=== PATIENT | male | born 1980 ===

== ENCOUNTER 2019-02-25 18:22 | Inpatient (IN) | payer OTHER ==
[~2019-02-25] VITALS: Ht 172.7 cm; Wt 89.7 kg
[2019-02-25 19:12] LABS: BASOPHILS % (AUTO) 0.7 % (0.0-2.0); EOSINOPHILS % (AUTO) 4.1 % (1.0-6.0); HEMATOCRIT 40.2 % (41-53); HEMOGLOBIN 13.7 g/dL (13.5-17.5); LYMPHOCYTES # (AUTO) 1.3 K/uL (1.0-4.8); LYMPHOCYTES % (AUTO) 17.7 % (22.0-44.0); MEAN CORPUSCULAR HEMOGLOBIN 29.2 pg (26.0-34.0); MEAN CORPUSCULAR VOLUME 86 fL (80-100); MONOCYTES # (AUTO) 0.5 K/uL (0.1-1.0); NEUTROPHILS # (AUTO) 5.2 K/uL (1.8-7.7); NEUTROPHILS % (AUTO) 70.5 % (40.0-70.0); PLATELET COUNT (AUTO) 224 K/uL (150-450); RED BLOOD CELL COUNT(AUTO) 4.68 MIL/uL (4.50-5.90); RED CELL DISTRIBUTION WIDTH 13.1 % (11.5-14.5)
[2019-02-25] MEDS ORDERED: ONDANSETRON HCL 4 MG/2 ML VIAL IVP PRN (19:30)
[2019-02-25] MEDS ORDERED: SODIUM CHLORIDE 0.9% 1,000 ML IV ONE ×2 (19:30→20:00)
[2019-02-25] MEDS ORDERED: ACETAMINOPHEN 325 MG TABLET PO PRN (19:30)
[2019-02-25] MEDS ORDERED: MAGNESIUM HYDROXIDE SUSPENSION 30 ML UDCUP PO PRN (19:30)
[2019-02-25 19:35] LABS: ANION GAP 9 mmol/L (8-16); CALCIUM, TOTAL 9.5 mg/dL (8.8-10.5); CARBON DIOXIDE 27 mmol/L (22-29); CHLORIDE 99 mmol/L (98-107); CREATININE 0.91 mg/dL (0.60-1.30); GLOMERULAR FILTR. RATE CALC > 60 mL/min (>60); GLUCOSE,RANDOM 106 mg/dL (70-110); POTASSIUM 4.2 mmol/L (3.5-5.1); SODIUM SERUM 135 mmol/L (136-145); UREA NITROGEN, BLOOD 17 mg/dL (7-18)
[2019-02-25 19:41] LABS: ALANINE AMINOTRANSFERASE 23 U/L (12-78); ALBUMIN 3.9 g/dL (3.4-5.0); ALKALINE PHOSPHATASE 125 U/L (46-116); ASPARTATE AMINOTRANSFERASE 20 U/L (15-37); BILIRUBIN,TOTAL 0.5 mg/dL (0.1-1.0); TOTAL PROTEIN, SERUM 8.2 g/dL (6.4-8.2)
[2019-02-25] MEDS ORDERED: ONDANSETRON HCL 4 MG/2 ML VIAL IVP ONE (20:00)
[2019-02-25 20:45] VITALS: BP 118/69
[2019-02-25] MEDS: FAMOTIDINE 20 MG TABLET PO SCH (21:50)
[2019-02-26] VITALS (7 sets, daily range): BP systolic 102–140; BP diastolic 65–80
[2019-02-26] MEDS: FAMOTIDINE 20 MG TABLET PO SCH ×2 (08:10→20:04)
[2019-02-26] MEDS: LORazepam 2 MG/ML VIAL IVP PRN ×2 (12:25→20:07)
[2019-02-27 04:00] VITALS: BP 125/79
[2019-02-27 07:39] VITALS: BP 114/85
[2019-02-27] MEDS: FAMOTIDINE 20 MG TABLET PO SCH ×2 (08:02→20:39)
[2019-02-27] MEDS: LORazepam 2 MG/ML VIAL IVP PRN ×2 (08:03→13:42)
[2019-02-27] MEDS ORDERED: SODIUM CHLORIDE 0.9% 1,000 ML IV ONE (11:15)
[2019-02-27 11:30] VITALS: BP 125/77
[2019-02-27] MEDS: NICOTINE 21 MG/24 HOUR PATCH TD SCH (13:42)
[2019-02-27 15:25] VITALS: BP 124/86
[2019-02-27 19:20] VITALS: BP 115/86
[2019-02-27 23:20] VITALS: BP 117/83
[2019-02-28 04:40] VITALS: BP 111/77
[2019-02-28] MEDS: LORazepam 2 MG/ML VIAL IVP PRN (04:58)
[2019-02-28 07:28] VITALS: BP 114/76
[2019-02-28] MEDS ORDERED: NICO-704 TD (09:00)
[2019-02-28] MEDS ORDERED: ACET-2247 PO (09:03)
[2019-02-28] MEDS: FAMOTIDINE 20 MG TABLET PO SCH (09:18)
[2019-02-28] MEDS: NICOTINE 21 MG/24 HOUR PATCH TD SCH (09:18)
== END 2019-02-28 10:30 | DRG 897 ==
LOC: EMS 18:26 → 6S 19:30
PROVIDERS: ADMIT Internal Medicine; ATTEND Internal Medicine
DX: F11.23 Opioid dependence with withdrawal (principal); E86.0 Dehydration; F19.10 Other psychoactive substance abuse, uncomplicated; B19.20 Unspecified viral hepatitis C without hepatic coma; F41.9 Anxiety disorder, unspecified; F17.200 Nicotine dependence, unspecified, uncomplicated
CPT/HCPCS: G0480; J2060; J2405; J7030